=== PATIENT | female | born 1950 | race African-American/Black ===

== ENCOUNTER 2018-05-17 12:48 | Emergency (ER) | payer MEDICARE, OTHER, MEDICAID ==
[2018-05-17] MEDS: ONDANSETRON (ODT) 4 MG TAB ODT (13:23)
[2018-05-17] MEDS: HYDROCODONE/APAP (10/325) TAB PO (13:23)
[2018-05-17] MEDS: HYDROmorphONE 2 MG/ML SYG IM (15:06)
[2018-05-17] MEDS: PROPOFOL 200 MG INJ IV (15:19)
== END 2018-05-17 17:24 | disposition home or self-care (01) ==
LOC: E/R 12:48
DX: S43.004A Unspecified dislocation of right shoulder joint, initial encounter (principal); E11.9 Type 2 diabetes mellitus without complications; I10 Essential (primary) hypertension; W01.0XXA Fall on same level from slipping, tripping and stumbling without subsequent striking against object, initial encounter; Y92.9 Unspecified place or not applicable; Z79.84 Long term (current) use of oral hypoglycemic drugs
CPT/HCPCS: 23650; 73030-RT; 73060-RT; 96372; 99285-25